=== PATIENT | female | born 1940 | race Caucasian/White ===

== ENCOUNTER → 2021-08-29 | Outpatient (CLI) | payer MEDICARE ==
[2021-08-29 18:30] LABS: INR 1.37 (0.90-1.11); Prothrombin Time 15.3 sec (9.9-11.9)
[2021-08-29 18:34] LABS: Chol/HDL Ratio 7.55 Ratio; LDL Cholesterol,Calculated 97.8 mg/dL (0.0-131.0); Magnesium 2.4 mg/dL (1.5-2.4)
[2021-08-29 18:54] LABS: ALT 18 U/L (8-44); AST 86 U/L (13-35); African American GFR (CKD) 80.6 (60.0-200.0); Albumin 3.5 g/dL (3.8-4.9); Albumin/Globulin Ratio 0.76 (1.60-3.17); Alkaline Phosphatase 109 U/L (41-126); BUN/Creat Ratio 22.73 Ratio (12.00-20.00); Calcium 9.6 mg/dL (8.7-10.3); Carbon Dioxide 19.9 mmol/L (20.0-27.5); Chloride 102 mmol/L (96-109); Globulin 4.6 g/dL (1.6-3.3); Glucose 86 mg/dL (70-110); Non-African American GFR(CKD) 69.5 (60.0-200.0); Potassium 4.7 mmol/L (3.5-5.5); Sodium 136 mmol/L (135-145); Total Protein 8.1 g/dL (6.2-8.2)
[2021-08-29 19:14] LABS: HCT 40.3 % (37.2-46.3); HGB 12.1 g/dL (12.0-15.0); MCH 28.1 pg (27.0-32.0); MCV 93.5 fL (80.0-97.0); Mean Platelet Volume 10.4 fL (9.5-12.2); NRBC Per 100 WBC 4.2 /100 WBCS (0.0-0.0); Platelet Count 748 X 10*3/uL (140-440); RBC 4.31 X 10*6/uL (4.10-5.20); RDW 18.8 % (11.5-14.5); WBC 47.81 X 10*3/uL (4.50-10.00)
[2021-08-29 19:15] LABS: Basophils # (M) 1.91 X 10*3/uL (0.00-0.10); Eosinophils # (M) 1.91 X 10*3/uL (0.04-0.35); Lymphocytes # (M) 3.35 X 10*3/uL (0.90-5.00); Metamyelocytes % 9 % (0-0); Monocytes # (M) 1.43 X 10*3/uL (0.20-1.00); Myelocytes % 17 % (0-0); Neutrophils % (M) 55 %; Promyelocytes % 1 % (0-0)
== END | disposition home or self-care (01) ==
LOC: LABWHC1 11:36
PROVIDERS: ATTEND Internal Medicine Cardiovascular Disease
DX: I48.0 Paroxysmal atrial fibrillation (principal); R06.9 Unspecified abnormalities of breathing; R73.01 Impaired fasting glucose; R79.9 Abnormal finding of blood chemistry, unspecified; E55.9 Vitamin D deficiency, unspecified
CPT/HCPCS: 36415; 80053; 80061; 82306; 82607; 83036; 83735; 83880; 84443; 85025; 85610